=== PATIENT | female | born 1945 | race Caucasian/White ===

== ENCOUNTER → 2016-09-29 | Outpatient (CLI) | payer OTHER ==
[~2016-09-29] MED LIST: AGM875 PO; ASPI81TA28 PO; CHOL1000 PO; LISI-461 PO; TNRUNK; VLT/50 PO
--- NOTE | 2016-09-29 10:19 | DIAGNOSTIC IMAGING REPORT ---
DOUBLE CONTRAST UPPER GI SERIES CLINICAL HISTORY: Status post placement of adjustable gastric banding now with reflux symptoms. COMPARISON STUDY: Upper GI series September 2015. FLUOROSCOPY TIME: 2.9 minutes. FINDINGS: Note is made of mild esophageal dysmotility. A gastric lap band is in place. There is moderate narrowing at the level the lap band. This is similar to exam of September 26, 2015. There is moderate dilatation of the gastric cardia which is unchanged. There may be a small hiatal hernia. No contrast extravasation is identified. There is no convincing evidence for slippage. IMPRESSION: 1. Status post placement of a gastric lap band. No contrast extravasation. No convincing evidence for slippage. 2. No significant change in moderate narrowing at the level of the lap band with dilatation of the gastric cardia and a possible hiatal hernia. 3. Mild esophageal dysmotility. Electronically signed by: Akhil Mcnulty M.D. 09/29/2016 10:17 AM Dictated Date/Time: 09/29/2016 10:07 AM
== END | disposition home or self-care (01) ==
LOC: C.RAD 09:09
PROVIDERS: ATTEND Surgery
DX: K91.1 Postgastric surgery syndromes (principal); K22.4 Dyskinesia of esophagus

== ENCOUNTER → 2017-03-10 | Outpatient (CLI) | payer OTHER ==
--- NOTE | 2017-03-10 13:38 | MAMMOGRAPHY REPORT ---
BILATERAL DIGITAL SCREENING MAMMOGRAM WITH CAD: 03/10/2017 CLINICAL HISTORY: Routine screening. Patient has no complaints. TECHNIQUE: Current study was also evaluated with a Computer Aided Detection (CAD) system. Bilateral CC and MLO views were obtained. COMPARISON: Comparison is made to exams dated: 03/09/2016 mammogram, 03/04/2015 mammogram, 09/17/2014 mammogram, 03/08/2014 mammogram, 03/01/2014 mammogram, and 02/28/2013 mammogram - [facility]. BREAST COMPOSITION: The tissue of both breasts is almost entirely fatty. FINDINGS: No suspicious masses, calcifications, or areas of architectural distortion are noted in ei ther breast. There has been no significant interval change compared to prior exams. IMPRESSION: ACR BI-RADS CATEGORY 1: NEGATIVE There is no mammographic evidence of malignancy. A 1 year screening mammogram is recommended. The pa tient will receive written notification of the results. Approximately 10% of breast cancers are not detected with mammography. A negative mammographic report should not delay biopsy if a clinically suggestive mass is present. Patricia Baron M.D. ah/:03/10/2017 12:01:38 Home [facility] Rn: Marie Yeung RT(R)(M)(BD), [facility] letter sent: Normal 1/2 BI-RADS Code: ACR BI-RADS Category 1: Negative
== END | disposition home or self-care (01) ==
LOC: C.MAMM 10:22
PROVIDERS: ATTEND Family Medicine
DX: Z12.31 Encounter for screening mammogram for malignant neoplasm of breast (principal)

== ENCOUNTER 2017-04-09 08:05 | Emergency (ER) | payer OTHER ==
[~2017-04-09] VITALS: Ht 160 cm; Wt 105.0 kg
[~2017-04-09 08:05] MED LIST changes: -ASPI81TA28 PO; -CHOL1000 PO; -LISI-461 PO; -VLT/50 PO
[2017-04-09 08:20] VITALS: TEMP 36.9; O2SAT 98; Ht 160 cm; Wt 105.0 kg
[2017-04-09] MEDS ORDERED: NITROGLYCERIN 0.4 MG SL PER TAB CHARGE SL PRN (08:30)
[2017-04-09 08:35] LABS: BASO % 0.4 %; BASO ABS # 0.02 K/uL (0-0.2); COMPLETE YES; EOS % 3.5 %; HEMATOCRIT 38.7 % (37-47); IG% 0.4 %; LYMPH % 29.9 %; LYMPH ABS # 1.54 K/uL (1.2-3.4); MEAN CELL VOLUME 92.8 fL (80-100); MEAN CORPUSCULAR HEMOGLOBIN 30.5 pg (25-34); MEAN CORPUSCULAR HGB CONC 32.8 g/dl (32-36); MEAN PLATELET VOLUME 9.4 fL (7.4-10.4); MONO % 6.8 %; PLATELET COUNT 272 K/uL (130-400); RED BLOOD COUNT 4.17 M/uL (4.2-5.4); WHITE BLOOD COUNT 5.15 K/uL (4.8-10.8)
--- NOTE | 2017-04-09 08:42 | DIAGNOSTIC IMAGING REPORT ---
CHEST ONE VIEW PORTABLE CLINICAL HISTORY: Chest pain. COMPARISON STUDY: No previous studies for comparison. FINDINGS: Evaluation is suboptimal due to body habitus and portable technique. No pneumothorax or pleural effusion is present. There is no evidence of pulmonary edema. Cardiac size is at the upper limits of normal. There may be a calcified 1.1 cm right upper lobe nodule. Apparent hazy bibasilar opacities are likely artifactual. IMPRESSION: No acute cardiopulmonary findings. Electronically signed by: Akhil Mcnulty M.D. 04/09/2017 8:41 AM Dictated Date/Time: 04/09/2017 8:40 AM
--- NOTE | 2017-04-09 08:48 | EMERGENCY ROOM VISIT NOTE ---
History Report prepared by Sushant: Arlen Belcher Under the Supervision of: Dr. Ebony Deras M.D. First contact with patient: 08:18 Chief Complaint: CARDIAC ASSESSMENT Stated Complaint: LIGHTHEADED/DIZZY/CHEST TIGHTNESS/ARM NUMBNESS History of Present Illness The patient is a 71 year old female who presents to the Emergency Room for a cardiac assessment of symptoms that started 1.5 hours ago, when she woke up around 0645. The patient came to the ED via ambulance from home. She was given 4 baby aspirin en route to the ED. The patient states that she woke up and her fingers were numb which is not abnormal for her. However, usually the numbness resolves when she sits up and gets out of bed. Today, the numbness persisted and she also experienced lightheadedness/dizziness. She states that her head felt like it was spinning but it also felt like her head wanted to drift off to the left side. The patient got out of bed and made the bed but the dizziness persisted so she sat back down on the bed. The patient took a couple of deep breaths while she was sitting on the bed and her fingers continued to be numb. She got up from the bed to get dressed and brush her teeth but after doing those things she developed chest tightness that radiated into her neck. She sat back down on her bed and asked Hue what the symptoms of a HI in women were and her symptoms matched so she felt that she needed to call the ambulance. She denies difficulty speaking, nausea, vomiting, and one-sided weakness. The patient also denies any difficulty ambulating but adds that she ambulated slowly. She states that the numbness in her fingers is nearly resolved now but she is still experiencing the chest tightness.The patient states that she has never had a HI. The patient is a former smoker and states that she quit 33 years ago. The patient states that she has not experienced any problems with her blood sugar. Source of History: patient Onset: 1.5 hours ago, when she woke up around 0645 Position: chest Quality: other (cardiac assessment) Timing: constant Associated Symptoms: + neck pain, + chest pain (tightness), + numbness ( bilateral fingers), No nausea, No vomiting, No weakness (one-sided) Note: lightheadedness/dizziness, no difficulty speaking, no difficulty ambulating Review of Systems See HPI for pertinent positives & negatives. A total of 10 systems reviewed and were otherwise negative. Past Medical & Surgical Medical Problems: (1) Arthritis (2) Hypertension Surgical Problems: (1) Hx of laparoscopic gastric banding Family History Cancer Social History Marital Status: Housing Status: lives alone Occupation Status: retired Current/Historical Medications Scheduled Aspirin (Aspirin Ec), 81 MG PO DAILY Cholecalciferol (Vitamin D3), 1 TAB PO DAILY Diclofenac Sod (Voltaren), Unknown Dose PO BID Lisinopril (Zestril), 0.5 TAB PO DAILY Allergies Coded Allergies: No Known Allergies (Unverified Allergy, NKA, 05/27/09) Physical Exam Vital Signs Date Time Temp Pulse Resp B/P (MAP) Pulse Ox O2 Delivery O2 Flow Rate FiO2 04/09/17 11:05 67 13 147/89 97 04/09/17 09:30 66 16 140/82 97 Room Air 04/09/17 09:00 65 13 155/93 97 Room Air 04/09/17 08:30 64 13 176/99 98 Room Air 04/09/17 08:20 98 Room Air 04/09/17 08:20 36.9 65 12 196/83 98 Room Air 04/09/17 08:20 98 Room Air 04/09/17 08:16 66 Physical Exam Vital signs reviewed. General: Well-appearing female, in no significant distress. HEENT: No scleral icterus, PERRLA, neck supple. Atraumatic. Cardiovascular: Regular rate and rhythm, no extra sounds. Pulmonary: Clear to auscultation bilaterally, normal work of breathing. Abdomen: Soft, obese, nontender, nondistended, positive bowel sounds. Musculoskeletal: Atraumatic, no peripheral edema. Neurologic: Patient awake alert and oriented x 3, full strength in all 4 extremities. Cranial nerves 2 through 12 grossly intact. Skin: Warm, dry, no rash Medical Decision & Procedures ER Provider Diagnostic Interpretation: Radiology results as stated below per my review and radiologist interpretation: CHEST ONE VIEW PORTABLE FINDINGS: Evaluation is suboptimal due to body habitus and portable technique. No pneumothorax or pleural effusion is present. There is no evidence of pulmonary edema. Cardiac size is at the upper limits of normal. There may be a calcified 1.1 cm right upper lobe nodule. Apparent hazy bibasilar opacities are likely artifactual. IMPRESSION: No acute cardiopulmonary findings. Electronically signed by: Akhil Mcnulty M.D. 04/09/2017 8:41 AM Dictated Date/Time: 04/09/2017 8:[address] OF THE HEAD WITHOUT CONTRAST FINDINGS: No acute intracranial hemorrhage, midline shift or mass effect is present. Ventricular system is normal. Basilar cisterns are patent. There are no extra-axial collections. Blackman-white differentiation is maintained. There are no findings to suggest acute dural sinus thrombosis or acute territorial infarct. The right maxillary sinus contains hyperdense material and is diminutive. The anterior right ethmoid sinuses as well as the right frontal sinus are opacified. IMPRESSION: 1. No acute intracranial findings. 2. Right frontal, ethmoid and maxillary sinus opacification which may be chronic. Electronically signed by: Akhil Mcnulty M.D. 04/09/2017 9:06 AM Dictated Date/Time: 04/09/2017 9:02 AM Laboratory Results 04/09/17 08:20 Red Blood Count 4.17, Mean Corpuscular Volume 92.8, Mean Corpuscular Hemoglobin 30.5, Mean Corpuscular Hemoglobin Concent 32.8, Mean Platelet Volume 9.4, Neutrophils (%) (Auto) 59.0, Lymphocytes (%) (Auto) 29.9, Monocytes (%) (Auto) 6.8, Eosinophils (%) (Auto) 3.5, Basophils (%) (Auto) 0.4, Neutrophils # (Auto) 3.04, Lymphocytes # (Auto) 1.54, Monocytes # (Auto) 0.35, Eosinophils # (Auto) 0.18, Basophils # (Auto) 0.02 04/09/17 08:20 Test 04/09/17 08:20 04/09/17 09:53 White Blood Count 5.15 K/uL (4.8-10.8) Red Blood Count 4.17 M/uL (4.2-5.4) Hemoglobin 12.7 g/dL (12.0-16.0) Hematocrit 38.7 % (37-47) Mean Corpuscular Volume 92.8 fL (80-100) Mean Corpuscular Hemoglobin 30.5 pg (25-34) Mean Corpuscular Hemoglobin Concent 32.8 g/dl (32-36) Platelet Count 272 K/uL (130-400) Mean Platelet Volume 9.4 fL (7.4-10.4) Neutrophils (%) (Auto) 59.0 % Lymphocytes (%) (Auto) 29.9 % Monocytes (%) (Auto) 6.8 % Eosinophils (%) (Auto) 3.5 % Basophils (%) (Auto) 0.4 % Neutrophils # (Auto) 3.04 K/uL (1.4-6.5) Lymphocytes # (Auto) 1.54 K/uL (1.2-3.4) Monocytes # (Auto) 0.35 K/uL (0.11-0.59) Eosinophils # (Auto) 0.18 K/uL (0-0.5) Basophils # (Auto) 0.02 K/uL (0-0.2) RDW Standard Deviation 48.0 fL (36.4-46.3) RDW Coefficient of Variation 14.1 % (11.5-14.5) Immature Granulocyte % (Auto) 0.4 % Immature Granulocyte # (Auto) 0.02 K/uL (0.00-0.02) Anion Gap 7.0 mmol/L (3-11) Est Creatinine Clear Calc Drug Dose 85.5 ml/min Estimated GFR () 100.0 Estimated GFR (Non- 86.3 BUN/Creatinine Ratio 13.2 (10-20) Calcium Level 9.2 mg/dl (8.5-10.1) Magnesium Level 2.0 mg/dl (1.8-2.4) Total Bilirubin 0.4 mg/dl (0.2-1) Direct Bilirubin < 0.1 mg/dl (0-0.2) Aspartate Amino Transf (AST/SGOT) 20 U/L (15-37) Alanine Aminotransferase (ALT/SGPT) 30 U/L (12-78) Alkaline Phosphatase 62 U/L (45-117) Total Creatine Kinase 62 U/L (26-192) Creatine Kinase MB < 0.5 ng/ml (0.5-3.6) Creatine Kinase MB Ratio (0-3.0) Total Protein 7.2 gm/dl (6.4-8.2) Albumin 3.7 gm/dl (3.4-5.0) Bedside Troponin I < 0.030 ng/ml (0-0.045) Laboratory results per my review. ECG Indication: chest pain Rate (beats per minute): 65 Rhythm: normal sinus Findings: no acute ischemic change, left axis deviation, no ectopy ED Course 0820: Past medical records reviewed. The patient was evaluated in room B2. A complete history and physical examination was performed. 0830: Ordered Nitroglycerin 0.4 mg SL 1007: Upon reevaluation, the patient appeared to have improvement of her symptoms. I discussed findings with her. She verbalized agreement of the treatment plan. She was discharged home. Medical Decision Differential diagnosis: Acute coronary syndrome, pulmonary embolus, aortic dissection, musculoskeletal pain, pneumonia, pleural effusion, pneumothorax This patient was evaluated and appeared to be in no significant distress. IV access was obtained and laboratory work was drawn. Patient was placed on the monitoring analyst and found to be in a normal sinus rhythm. EKG reveals no evidence of acute ischemic changes. Laboratory work reveals 2 negative troponins. Patient did receive aspirin in the ambulance. A nitroglycerin trial was given in the ER with some success. CT scan of the head was performed given complaints of unilateral arm numbness. This study is negative for intracranial abnormality however there is chronic sinus opacification. I did inform the patient findings and she will arrange for follow-up with ENT. She will return to the ER for worsening of symptoms or any medical concerns. Medication Reconcilliation Current Medication List: was personally reviewed by me Blood Pressure Screening Patient's blood pressure: Elevated blood pressure Blood pressure disposition: Referred to PCP Impression Primary Impression: Chest pain radiating to arm Scribe Attestation The scribe's documentation has been prepared under my direction and personally reviewed by me in its entirety. I confirm that the note above accurately reflects all work, treatment, procedures, and medical decision making performed by me. Departure Information Dispostion Home / Self-Care Referrals Catarina Snow M.D. (PCP) Forms IMPORTANT VISIT INFORMATION Patient Instructions My [facility] Additional Instructions Diagnosis: Chest pain radiating to the arm, hypertension Continue your aspirin and blood pressure medicine as prescribed. Follow-up with your physician this week for consideration of further cardiac testing. Have your blood pressure rechecked. Return to the emergency department for worsening of symptoms or any medical concerns.
[2017-04-09 08:58] LABS: ALT/SGPT 30 U/L (12-78); AST/SGOT 20 U/L (15-37); BLOOD UREA NITROGEN 9 mg/dl (7-18); BUN/CREATININE RATIO 13.2 (10-20); CALCIUM 9.2 mg/dl (8.5-10.1); CARBON DIOXIDE 28 mmol/L (21-32); CHLORIDE 107 mmol/L (98-107); CREATININE 0.71 mg/dl (0.60-1.20); GLUCOSE 117 mg/dl (70-99); POTASSIUM 3.9 mmol/L (3.5-5.1); SODIUM 142 mmol/L (136-145)
[2017-04-09 09:03] LABS: ALKALINE PHOSPHATASE 62 U/L (45-117)
--- NOTE | 2017-04-09 09:07 | DIAGNOSTIC IMAGING REPORT ---
CT OF THE HEAD WITHOUT CONTRAST CLINICAL HISTORY: Dizzy, left arm numbness COMPARISON STUDY: Head CT May 27, 2009. CT DOSE: 537.48 mGy.cm TECHNIQUE: Helical axial images of the head were obtained without IV contrast. Automated exposure control was utilized for the study. A dose lowering technique was utilized adhering to the principles of ALARA. FINDINGS: No acute intracranial hemorrhage, midline shift or mass effect is present. Ventricular system is normal. Basilar cisterns are patent. There are no extra-axial collections. Blackman-white differentiation is maintained. There are no findings to suggest acute dural sinus thrombosis or acute territorial infarct. The right maxillary sinus contains hyperdense material and is diminutive. The anterior right ethmoid sinuses as well as the right frontal sinus are opacified. IMPRESSION: 1. No acute intracranial findings. 2. Right frontal, ethmoid and maxillary sinus opacification which may be chronic. Electronically signed by: Akhil Mcnulty M.D. 04/09/2017 9:06 AM Dictated Date/Time: 04/09/2017 9:02 AM
[2017-04-09] MEDS ORDERED: CHOL1000 PO (09:15)
[2017-04-09] MEDS ORDERED: ASPI81TA28 PO (09:15)
[2017-04-09] MEDS ORDERED: LISI-461 PO (09:15)
[2017-04-09] MEDS ORDERED: VLT/50 PO (09:15)
[2017-04-09 11:05] VITALS: BP 147/89; PULSE 67; O2SAT 97
== END 2017-04-09 11:00 | disposition home or self-care (01) ==
LOC: EDBD 08:05 → C.EDB 08:07
DX: R07.9 Chest pain, unspecified (principal); R20.0 Anesthesia of skin; R42 Dizziness and giddiness; I10 Essential (primary) hypertension; M19.90 Unspecified osteoarthritis, unspecified site; Z87.891 Personal history of nicotine dependence; Z98.84 Bariatric surgery status; Z79.82 Long term (current) use of aspirin; Z79.899 Other long term (current) drug therapy

== ENCOUNTER → 2017-12-23 | Outpatient (CLI) | payer OTHER ==
[~2017-12-23] MED LIST changes: -AGM875 PO; +ASPI81TA28 PO; +CHOL1000 PO; +LISI-461 PO; -TNRUNK; +VLT/50 PO
--- NOTE | 2017-12-23 09:28 | DIAGNOSTIC IMAGING REPORT ---
DOUBLE CONTRAST UPPER GI SERIES CLINICAL HISTORY: Gastric band adjustment. COMPARISON STUDY: Fluoroscopic upper GI series dated 09/29/2016. TECHNIQUE: A a modified air contrast upper GI series was performed. Spot images of the esophagus and stomach were obtained in multiple obliquities both upright and prone. FINDINGS: The patient swallowed barium without difficulty. The esophagus is structurally normal without evidence of intrinsic or extrinsic mass. Mild dysmotility is observed. The esophageal mucosal pattern is normal. No gastroesophageal reflux was elicited by having the patient perform the Valsalva maneuver. The gastroesophageal junction distends normally. A small hiatal hernia is noted. A gastric lap band is in place. Moderate narrowing is seen at the level of the lap band, and this is unchanged in both appearance and position from the 09/29/2016 examination. There is no evidence of slippage. No mass or ulceration is identified. There was no evidence of gastritis. The duodenal bulb and sweep are unremarkable. No extraluminal contrast is identified. Fluoroscopy time: 1.8 minutes Fluoroscopic images: 23 IMPRESSION: 1. Unchanged position of a gastric lap band as compared to 09/29/2016. There is no evidence of slippage. 2. Mild esophageal dysmotility. 3. Small hiatal hernia. Electronically signed by: Mariano Arroyo M.D. 12/23/2017 9:27 AM Dictated Date/Time: 12/23/2017 9:24 AM
== END | disposition home or self-care (01) ==
LOC: C.RAD 08:28
PROVIDERS: ATTEND Surgery
DX: Z98.84 Bariatric surgery status (principal)

== ENCOUNTER → 2018-01-12 | Outpatient (CLI) | payer OTHER | END | disposition home or self-care (01) | LOC: C.PATHSPEC 17:21 | PROVIDERS: ATTEND Plastic Surgery | DX: D03.59 Melanoma in situ of other part of trunk (principal) ==

== ENCOUNTER 2020-04-19 00:42 | Observation (INO) ==
[2020-04-19] MEDS ORDERED: ONDANSETRON INJ 2 MG/ML 2 ML VIAL IV STA (01:01)
[2020-04-19] MEDS ORDERED: fentaNYL citrate 100 MCG/2 ML VIAL IV STA (01:01)
[2020-04-19] MEDS ORDERED: SODIUM CHLORIDE 0.9% 1000ML 1,000 ML IV ONE ×2 (01:01→01:42)
--- NOTE | 2020-04-19 01:07 | Emergency Department Note ---
Impression & Plan Acute appendicitis, Acidosis, lactic ED Provider Note Name: BENITEZ GUDINO Age: 74 Sex: F Arrives Via: Ambulance Informant: Patient ED Provider: Kobe Knox MD Chief Complaint: Abdominal Pain Impression: Acute Appendicitis Lactic Acidosis Medical Decision Making: Pleasant 74 yr old female with history HTN, Psoriasis, Arthritis and previous lap band surgery arrives with acute RLQ pain, anorexia and fevers. Labs with mild WBC elevation and mild Lactic Acidosis. No hypotension and HR improved with IV fluids. Given 30ml/kg fluids IBW plus some. With lactic acidosis and Fever felt that empiric ABx indicated with suspicion Appy I gave Mefoxin. She is not septic appearing and is not septic shock currently. She feels well post fluids and pain medications. Did not given Tylenol as she had had this prior to arrival. She was discussed with gen surg after CT showed non perforated appendicitis and was taken to OR for further management. Stable throughout ED stay and looks well at transfer to OR. Prior Medical Record and Triage/Nursing Notes reviewed by Me Additional history obtained from chart Differentials:Appendicitis, diverticulitis, UTI, obstruction, mesenteric ischemia, aortic pathology, inflammatory bowel disease, renal colic, PUD, pancreatitis, biliary pathology, hernia, volvulus, constipation, as well as other pathologies. Vital Signs: reviewed and remarkable for no significant abnormalities Interventions: Saline lock, NSS Bolus 2.5L IV, mefoxin 2gm IV Labs:Reviewed and remarkable for mild wbc/lactic acid elevation Imaging:[facility] Radiologist interpretation reviewed by me: CT abd pelv iv contrast with acute non perforated appendicitis Consults:Dr Acosta Gen Surg took patient to OR Plan: Disposition:Hospitalization. Condition: Good Blood pressure:Normal.No Referral necessary Prescriptions:none PDMP: n/a History of Present Illness:74 / Female with history of HTN, Psoriasis, Arthritis arrives with abdominal pain. 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 Pain RLQ sharp. As evening when on increasing pain, now radiating to umbilicus and LLQ. Denies radiation to back. Associated with nausea, malaise, fatigue, and fevers. Temp 102 at home. Used Tylenol CARE MANAGER CNA with improvement in fever but no improvement in pain. No trauma nor injuries. Movement makes worse, rest makes better. History of Lap band surgery and D&C, no recent surgeries. Denies previous appendicitis, diverticulitis nor cholecystitis. ROS: See above HPI for pertinent positives & negatives. A total of 10 systems reviewed and were otherwise negative. Past Medical History:HTN, Psoriasis, Arthritis Past Surgical History:lab band, D&C Family History:Mother HTN Social History:Previous smoker, lives alone, no etoh, retired Home Medications:See Below Allergies:NKDA Vitals:Blood Pressure: 200/99, Pulse 107, RR 22, T 37.7C, O2 95% on RA Physical Exam: GENERAL: Patient is uncomfortable appearing and in moderate distress. EYES: No scleral icterus, unremarkable pupils. ENT: Mucous membranes moist, no nasal congestion. NECK: No masses appreciated, nomeningismus, trachea is midline. RESPIRATORY: No dyspnea. Clear to auscultation and equal bilaterally. No wheeze, no rhonchi. CARDIOVASCULAR: Regular rate and rhythm.No murmurs, rubs, gallops appreciated. GASTROINTESTINAL: Moderate RLQ TTP, mild umbilical TTP, no peritonitis.Bowel sounds positive.No masses appreciated. BACK: No midline tenderness, no CVA tenderness EXTREMITIES: Normal motion all extremities, no cyanosis, trace edema bilateral lower legs NEUROLOGIC: Alert and oriented, no acute motor or sensory deficits, no focal weakness, cranial nerves grossly intact. SKIN: No rash, no jaundice, no diaphoresis. PSYCH: Appropriate GCS: 15 ED Course: Times/Reassessments: feeling better with fluids/pain meds, agreeable to gen surg eval, vitals stable on repeat evaluations pending transfer to OR Kobe Knox MD Past Med/Surg History Medical History History of basal cell carcinoma (Inactive) Personal history of malignant melanoma of skin (Inactive) Surgical History Hx of laparoscopic gastric banding (Inactive) S/P cataract extraction bilateral Family History Father No problems noted. Mother Hypertension Neurologic disorder Social History (Updated 12/14/19 @ 10:12 by Rose Neff PA-C) Smoking Status: Former smoker Feels Safe at Home: Yes Allergies Allergies Allergy/AdvReac Type Severity Reaction Status Date / Time No Known Allergies Allergy NKA Verified 04/19/20 01:22 Home Meds Home Medications Medication Instructions Recorded Confirmed acetaminophen 650 mg 650 mg PO TID PRN tab 07/23/19 04/19/20 tablet,extended release ascorbate calcium (vitamin C) 500 500 mg PO DAILY 07/23/19 04/19/20 mg tablet cannabidiol (CBD) extract 0 drp PO DIRECTED PRN 07/23/19 04/19/20 coenzyme Q10 100 mg capsule 100 mg PO DAILY 07/23/19 04/19/20 lisinopril 20 1 tab PO DAILY 07/23/19 04/19/20 mg-hydrochlorothiazide 25 mg tablet loratadine 10 mg tablet 10 mg PO DAILY 07/23/19 04/19/20 vitamin E (dl, acetate) 400 unit 400 units PO DAILY 07/23/19 04/19/20 capsule famotidine 20 mg tablet 20 mg PO BID 04/08/20 04/19/20 cholecalciferol (vitamin D3) 0 mcg PO DAILY 04/19/20 04/19/20 [Vitamin D3] Previous Rx's Medication Instructions Recorded clobetasol 0.05 % shampoo 1 appln TOP DAILY #118 ml 10/10/19 Results & Data (ED) Vital Signs Vital Signs - 24 hr 04/19/20 00:49 04/19/20 01:19 04/19/20 01:30 Temperature 37.7 C H Temperature Source Oral Pulse Rate 107 H Pulse Rate [Apical] 97 H 91 H Respiratory Rate 22 20 21 Blood Pressure 200/99 H Blood Pressure [Left Arm] 136/81 147/81 H Blood Pressure Mean 132 Blood Pressure Mean [Left Arm] 99 103 Pulse Oximetry 95 91 99 Oxygen Delivery Method Room Air Room Air Nasal Cannula Oxygen Flow Rate 2 Sepsis Recent Fever Within 48 Hours Yes Sepsis New/Unexplained Change in Mental Status No Sepsis Action Taken by Nursing Physician Notified 04/19/20 03:05 Temperature Temperature Source Pulse Rate 90 Pulse Rate [Apical] Respiratory Rate 18 Blood Pressure 143/88 H Blood Pressure [Left Arm] Blood Pressure Mean Blood Pressure Mean [Left Arm] Pulse Oximetry 94 Oxygen Delivery Method Room Air Oxygen Flow Rate Sepsis Recent Fever Within 48 Hours Sepsis New/Unexplained Change in Mental Status Sepsis Action Taken by Nursing Laboratory Data Result diagrams: 04/19/20 00:50 04/19/20 00:50 Lab Results 0804/19/20 04/19/20 Range/Units 00:50 00:50 00:50 WBC 13.17 H (4.8-10.8) K/uL RBC 3.86 L (4.2-5.4) M/uL Hgb 12.2 (12.0-16.0) g/dL Hct 36.9 L (37-47) % MCV 95.6 (80-100) fL MCH 31.6 (25-34) pg MCHC 33.1 (32-36) g/dL RDW Std Deviation 46.9 H (36.4-46.3) fL RDW Coeff of Nick 13.5 (11.5-14.5) % Plt Count 301 (130-400) K/uL MPV 9.2 (7.4-10.4) fL Immature Gran % (Auto) 0.2 % Neut % (Auto) 86.5 % Lymph % (Auto) 7.1 % [place] % (Auto) 5.8 % Eos % (Auto) 0.2 % Baso % (Auto) 0.2 % Neut # (Auto) 11.39 H (1.4-6.5) K/uL Lymph # (Auto) 0.93 L (1.2-3.4) K/uL [place] # (Auto) 0.77 H (0.11-0.59) K/uL Eos # (Auto) 0.03 (0-0.5) K/uL Baso # (Auto) 0.02 (0-0.2) K/uL Immature Gran # (Auto) 0.03 H (0.00-0.02) K/uL Sodium 140 (136-145) mmol/L Potassium 3.7 (3.5-5.1) mmol/L Chloride 107 (98-107) mmol/L Carbon Dioxide 24 (21-32) mmol/L Anion Gap 9.0 (3-11) BUN 10 (7-18) mg/dl Creatinine 0.76 (0.6-1.2) mg/dl Est Cr Clr Drug Dosing 79.6 ml/min Est GFR ( Amer) 90.2 Est GFR (Non-Af Amer) 77.8 BUN/Creatinine Ratio 13.8 (10-20) Glucose 171 H (70-99) mg/dl Lactate 2.5 H* (0.4-2.0) mmol/L Calcium 9.3 (8.5-10.1) mg/dl Total Bilirubin 0.5 (0.2-1) mg/dl Direct Bilirubin 0.1 (0-0.2) mg/dl AST 14 L (15-37) U/L ALT 24 (12-78) U/L Alkaline Phosphatase 56 (45-117) U/L Total Protein 7.8 (6.4-8.2) gm/dl Albumin 3.6 (3.4-5.0) gm/dl Lipase 59 L (73-393) U/L 04/19/20 Range/Units 03:20 WBC (4.8-10.8) K/uL RBC (4.2-5.4) M/uL Hgb (12.0-16.0) g/dL Hct (37-47) % MCV (80-100) fL MCH (25-34) pg MCHC (32-36) g/dL RDW Std Deviation (36.4-46.3) fL RDW Coeff of Nick (11.5-14.5) % Plt Count (130-400) K/uL MPV (7.4-10.4) fL Immature Gran % (Auto) % Neut % (Auto) % Lymph % (Auto) % [place] % (Auto) % Eos % (Auto) % Baso % (Auto) % Neut # (Auto) (1.4-6.5) K/uL Lymph # (Auto) (1.2-3.4) K/uL [place] # (Auto) (0.11-0.59) K/uL Eos # (Auto) (0-0.5) K/uL Baso # (Auto) (0-0.2) K/uL Immature Gran # (Auto) (0.00-0.02) K/uL Sodium (136-145) mmol/L Potassium (3.5-5.1) mmol/L Chloride (98-107) mmol/L Carbon Dioxide (21-32) mmol/L Anion Gap (3-11) BUN (7-18) mg/dl Creatinine (0.6-1.2) mg/dl Est Cr Clr Drug Dosing ml/min Est GFR ( Amer) Est GFR (Non-Af Amer) BUN/Creatinine Ratio (10-20) Glucose (70-99) mg/dl Lactate 3.9 H* (0.4-2.0) mmol/L Calcium (8.5-10.1) mg/dl Total Bilirubin (0.2-1) mg/dl Direct Bilirubin (0-0.2) mg/dl AST (15-37) U/L ALT (12-78) U/L Alkaline Phosphatase (45-117) U/L Total Protein (6.4-8.2) gm/dl Albumin (3.4-5.0) gm/dl Lipase (73-393) U/L Administered Medications Discontinued Medications Bupivacaine HCl (Marcaine 0.5% Mpf) Confirm Administered Dose 30 ml .ROUTE .STK- MED ONE Stop: 04/19/20 03:12 Last Admin: 04/19/20 04:59 Dose: 14 ml Documented by: [id number] Cefazolin Sodium (Ancef) Confirm Administered Dose 1,000 mg .ROUTE .STK-MED ONE Stop: 04/19/20 03:12 Last Admin: 04/19/20 04:58 Dose: 1,000 mg Documented by: [id number] Fentanyl Citrate (Fentanyl Citrate) 50 mcg IV NOW STA Stop: 04/19/20 01:02 Last Admin: 04/19/20 01:13 Dose: 50 mcg Documented by: [id number] Heparin Sodium (Porcine) (Heparin Iv Bolus (Chief Design Drafter Use Only)) Confirm Administered Dose 10,000 units .ROUTE .STK-MED ONE Stop: 04/19/20 03:12 Last Admin: 04/19/20 04:59 Dose: 5,000 units Documented by: [id number] Sodium Chloride (Nss 1000ml) 1,000 mls @ 999 mls/hr IV .Q1H1M ONE Stop: 04/19/20 02:01 Last Infusion: 04/19/20 03:16 Dose: 0 mls/hr Documented by: [id number] Admin: 04/19/20 01:13 Dose: 999 mls/hr Documented by: [id number] Sodium Chloride (Nss 1000ml) 1,000 mls @ 999 mls/hr IV .Q1H1M ONE Stop: 04/19/20 02:42 Last Infusion: 04/19/20 03:17 Dose: 0 mls/hr Documented by: [id number] Admin: 04/19/20 01:49 Dose: 999 mls/hr Documented by: [id number] Cefoxitin Sodium (Mefoxin) 2,000 mg in 60 mls @ 100 mls/hr IV NOW STA Stop: 04/19/20 02:56 Last Infusion: 04/19/20 03:24 Dose: 0 mls/hr Documented by: [id number] Admin: 04/19/20 02:33 Dose: 100 mls/hr Documented by: [id number] Sodium Chloride (Nss 1000ml) 500 mls @ 999 mls/hr IV .Q31M ONE Stop: 04/19/20 02:51 Last Infusion: 04/19/20 03:24 Dose: 0 mls/hr Documented by: [id number] Admin: 04/19/20 02:33 Dose: 999 mls/hr Documented by: [id number] Ioversol (Optiray 320 100ml) 94 ml IV ONCE ONE Stop: 04/19/20 02:15 Last Admin: 04/19/20 02:15 Dose: 94 ml Documented by: [id number] Ondansetron HCl (Zofran) 4 mg IV NOW STA Stop: 04/19/20 01:02 Last Admin: 04/19/20 01:13 Dose: 4 mg Documented by: [id number] Discharge Plan Visit Data *Final* Discharge Date/Time: 04/19/20 03:05 Chief Complaint: Abdominal Pain Stated Complaint: Abd pain ED Provider: Kobe Knox Discharge Problem: Acute appendicitis, Acidosis, lactic Patient Disposition: Still a Patient Discharge Instructions Interventions: ED Discharge Assessment Last Done: 04/19/20 03:05 Discharge Problem: Acute appendicitis Qualifiers: Acute appendicitis type: with localized peritonitis Appendicitis gangrene presence: without gangrene Appendicitis perforation presence: without perforation Appendicitis abscess presence: without abscess Qualified Code(s): K35.30 - Acute appendicitis with localized peritonitis, without perforation or gangrene
[2020-04-19 01:09] LABS: Basophils # (auto) 0.02 K/uL (0-0.2); Basophils % (auto) 0.2 %; Eosinophils # (auto) 0.03 K/uL (0-0.5); Eosinophils % (auto) 0.2 %; Hematocrit (blood only) 36.9 % (37-47); Hemoglobin 12.2 g/dL (12.0-16.0); Immature Granulocytes # (auto) 0.03 K/uL (0.00-0.02); Immature Granulocytes % (auto) 0.2 %; Lymphocytes # (auto) 0.93 K/uL (1.2-3.4); Lymphocytes % (auto) 7.1 %; Mean Corpuscular Hemoglobin 31.6 pg (25-34); Mean Corpuscular Hgb Conc 33.1 g/dL (32-36); Mean Corpuscular Volume 95.6 fL (80-100); Mean Platelet Volume 9.2 fL (7.4-10.4); Monocytes # (auto) 0.77 K/uL (0.11-0.59); Monocytes % (auto) 5.8 %; Neutrophils # (auto) 11.39 K/uL (1.4-6.5); Neutrophils % (auto) 86.5 %; Platelet Count 301 K/uL (130-400); RDW Coefficient of Variation 13.5 % (11.5-14.5); RDW Standard Deviation 46.9 fL (36.4-46.3); Red Blood Count 3.86 M/uL (4.2-5.4); White Blood Count 13.17 K/uL (4.8-10.8)
[2020-04-19 01:28] LABS: Albumin Level 3.6 gm/dl (3.4-5.0); BUN Creatinine Ratio 13.8 (10-20); Bilirubin Direct 0.1 mg/dl (0-0.2); Calcium 9.3 mg/dl (8.5-10.1); Creatinine Clr Calc Pharmacy 79.6 ml/min; Est GFR (African American) 90.2; Est GFR (Non-African American) 77.8; Potassium 3.7 mmol/L (3.5-5.1)
[2020-04-19 01:31] LABS: Bilirubin,Total 0.5 mg/dl (0.2-1); Total Protein 7.8 gm/dl (6.4-8.2)
[2020-04-19] MEDS ORDERED: IOVERSOL 100ml IV ONE (02:14)
[2020-04-19] MEDS ORDERED: SODIUM CHLORIDE 0.9% 1000ML 500 ML IV ONE (02:21)
[2020-04-19] MEDS ORDERED: cefOXitin 2,000 MG/60 ML BAG IV STA (02:21)
--- NOTE | 2020-04-19 03:02 | History & Physical Report ---
Date of Service April 19, 2020 Assessment & Plan (1) Appendicitis: This patient's history, physical findings, laboratories and CT findings are consistent with appendicitis. I have recommended a laparoscopic appendectomy. I explained the possible need to convert to an open procedure. I explained the possible complications associated with those procedures. The patient wishes to go ahead with surgery and has signed a consent form. History of Present Illness Chief Complaint: Right lower quadrant abdominal pain Primary Care Provider: Kirk Bo DO This is a 74-year-old female who presented to the emergency room with a complaint of right lower quadrant pain that began about 12 to 16 hours ago. It began in the right lower quadrant and has remained there. It is sharp especially when she moves. It has not been associated with nausea or vomiting. Her temperature elevated to almost 102 at home. She has not had dysuria or nadya turia. She has no melena or hematochezia. She had a normal bowel movement yesterday morning. There is no diarrhea. Allergies Allergy/AdvReac Type Severity Reaction Status Date / Time No Known Allergies Allergy NKA Verified 04/19/20 01:22 Home Medications Home Medications Medication Instructions Recorded Confirmed Type acetaminophen 650 mg 650 mg PO TID PRN tab 07/23/19 04/19/20 History tablet,extended release ascorbate calcium (vitamin C) 500 500 mg PO DAILY 07/23/19 04/19/20 History mg tablet cannabidiol (CBD) extract 0 drp PO DIRECTED PRN 07/23/19 04/19/20 History coenzyme Q10 100 mg capsule 100 mg PO DAILY 07/23/19 04/19/20 History lisinopril 20 1 tab PO DAILY 07/23/19 04/19/20 History mg-hydrochlorothiazide 25 mg tablet loratadine 10 mg tablet 10 mg PO DAILY 07/23/19 04/19/20 History vitamin E (dl, acetate) 400 unit 400 units PO DAILY 07/23/19 04/19/20 History capsule clobetasol 0.05 % shampoo 1 appln TOP DAILY #118 ml 10/10/19 04/19/20 Rx famotidine 20 mg tablet 20 mg PO BID 04/08/20 04/19/20 History cholecalciferol (vitamin D3) 0 mcg PO DAILY 04/19/20 04/19/20 History [Vitamin D3] Past Med/Surg History Medical History (Updated 04/19/20 @ 03:04 by Osvaldo Acosta MD) History of basal cell carcinoma (Inactive) Personal history of malignant melanoma of skin (Inactive) Surgical History (Updated 04/19/20 @ 03:00 by Osvaldo Acosta MD) Hx of laparoscopic gastric banding (Inactive) S/P cataract extraction bilateral Family History (Updated 12/14/19 @ 10:12 by Rose Neff PA-C) Father No problems noted. Mother Hypertension Neurologic disorder Social History (Updated 12/14/19 @ 10:12 by Rose Neff PA-C) Smoking Status: Former smoker Feels Safe at Home: Yes Review of Systems Review of Systems: All systems reviewed & are unremarkable except as noted in HPI & below Physical Exam Constitutional: no acute distress Neck: trachea midline, no thyromegaly Respiratory: normal respiratory effort, lungs clear to auscultation Cardiovascular: Rate/Rhythm: regular rate and regular rhythm Gastrointestinal (Abdomen): Inspection/Auscultation: abdomen not distended Percussion/Palpation: + abdomen tender (Right lower quadrant ) and abdomen soft; no abdominal mass Skin: no rashes, warm and dry Lymphatic: no cervical lymphadenopathy Results & Data Results & Data ([facility]) Vital Signs (Past 12 Hours) Vital Signs Temp Pulse Pulse Resp BP BP Pulse Ox 04/19/20 01:30 91 H 21 147/81 H 99 04/19/20 01:19 97 H 20 136/81 91 04/19/20 00:49 37.7 C H 107 H 22 200/99 H 95 Laboratory Results 04/19/20 04/19/20 04/19/20 Range/Units 00:50 00:50 00:50 WBC 13.17 H (4.8-10.8) K/uL RBC 3.86 L (4.2-5.4) M/uL Hgb 12.2 (12.0-16.0) g/dL Hct 36.9 L (37-47) % MCV 95.6 (80-100) fL MCH 31.6 (25-34) pg MCHC 33.1 (32-36) g/dL RDW Std Deviation 46.9 H (36.4-46.3) fL RDW Coeff of Nick 13.5 (11.5-14.5) % Plt Count 301 (130-400) K/uL MPV 9.2 (7.4-10.4) fL Immature Gran % (Auto) 0.2 % Neut % (Auto) 86.5 % Lymph % (Auto) 7.1 % [place] % (Auto) 5.8 % Eos % (Auto) 0.2 % Baso % (Auto) 0.2 % Neut # (Auto) 11.39 H (1.4-6.5) K/uL Lymph # (Auto) 0.93 L (1.2-3.4) K/uL [place] # (Auto) 0.77 H (0.11-0.59) K/uL Eos # (Auto) 0.03 (0-0.5) K/uL Baso # (Auto) 0.02 (0-0.2) K/uL Immature Gran # (Auto) 0.03 H (0.00-0.02) K/uL Sodium 140 (136-145) mmol/L Potassium 3.7 (3.5-5.1) mmol/L Chloride 107 (98-107) mmol/L Carbon Dioxide 24 (21-32) mmol/L Anion Gap 9.0 (3-11) BUN 10 (7-18) mg/dl Creatinine 0.76 (0.6-1.2) mg/dl Est Cr Clr Drug Dosing 79.6 ml/min Est GFR ( Amer) 90.2 Est GFR (Non-Af Amer) 77.8 BUN/Creatinine Ratio 13.8 (10-20) Glucose 171 H (70-99) mg/dl Lactate 2.5 H* (0.4-2.0) mmol/L Calcium 9.3 (8.5-10.1) mg/dl Total Bilirubin 0.5 (0.2-1) mg/dl Direct Bilirubin 0.1 (0-0.2) mg/dl AST 14 L (15-37) U/L ALT 24 (12-78) U/L Alkaline Phosphatase 56 (45-117) U/L Total Protein 7.8 (6.4-8.2) gm/dl Albumin 3.6 (3.4-5.0) gm/dl Lipase 59 L (73-393) U/L Diagnostic Findings CT scan of the abdomen and pelvis with contrast revealed an enlarged appendix measuring 12 mm with appendicolith and adjacent stranding suggestive of appendicitis. There is no fluid collection or free air. Diverticulosis. Areas of mild colonic wall thickening likely related to under distention. Fluid and air in the small bowel. Query ileus or enteritis. Prominence of the right greater than left renal collecting systems without evidence of ureteral stone. Cholelithiasis. Mild fatty liver. Moderate hiatal hernia. Gastric lap band. Additional incidental findings.
[2020-04-19] MEDS ORDERED: BUPIVACAINE 0.5 % 5 MG/1 ML MPF 30ML VIAL ONE (03:11)
[2020-04-19] MEDS ORDERED: CEFAZOLIN 250 MG/ML 1 GM VIAL ONE (03:11)
[2020-04-19] MEDS ORDERED: HEPARIN (PORCINE) 1000 UNIT/ML 10 ML (CATH LAB USE ONLY) ONE (03:11)
[2020-04-19] MEDS ORDERED: ROCURONIUM BROMIDE 10 MG/ML 5 ML VIAL IV ONE ×2 (03:18→04:42)
[2020-04-19] MEDS ORDERED: PROPOFOL IV EMULSION 10 MG/ML 20 ML VIAL IV ONE (03:18)
[2020-04-19] MEDS ORDERED: fentaNYL citrate 100 MCG/2 ML VIAL ONE ×3 (03:18→04:47)
[2020-04-19] MEDS ORDERED: HYDROmorphone INJ 2 MG/ML SYR/VIAL IV PRN (03:34)
[2020-04-19] MEDS ORDERED: ATROPINE SULFATE 0.1 MG/ML 10ML SYR IV PRN (03:34)
[2020-04-19] MEDS ORDERED: fentaNYL citrate 100 MCG/2 ML VIAL IV PRN (03:34)
[2020-04-19] MEDS ORDERED: ePHEDrine sulfate 50 MG/ML AMP IV PRN (03:34)
[2020-04-19] MEDS ORDERED: ONDANSETRON INJ 2 MG/ML 2 ML VIAL IV PRN ×2 (03:34→07:32)
--- NOTE | 2020-04-19 03:35 | Anesthesiology Consultation ---
Date of Service April 19, 2020 Assessment & Plan ASA [id number] Proposed Anesthesia Anesthesia Type: General Risk / Benefits Reviewed With: PT / POA / Parent / Guardian, Accepts Plan and Informed Consent Obtained History Surgery Operation Date: 04/19/20 03:30 Proposed Procedures p Laparoscopic Appendectomy - Osvaldo Acosta MD Height/Weight Height: 5 ft 3 in Weight: 112.5 kg Allergies Allergy/AdvReac Type Severity Reaction Status Date / Time No Known Allergies Allergy NKA Verified 04/19/20 01:22 Medications Home Medications Medication Instructions Recorded Confirmed Last Taken acetaminophen 650 mg 650 mg PO TID PRN tab 07/23/19 04/19/20 Unknown tablet,extended release ascorbate calcium (vitamin C) 500 500 mg PO DAILY 07/23/19 04/19/20 04/18/20 mg tablet cannabidiol (CBD) extract 0 drp PO DIRECTED PRN 07/23/19 04/19/20 Unknown coenzyme Q10 100 mg capsule 100 mg PO DAILY 07/23/19 04/19/20 04/18/20 lisinopril 20 1 tab PO DAILY 07/23/19 04/19/20 04/18/20 mg-hydrochlorothiazide 25 mg tablet loratadine 10 mg tablet 10 mg PO DAILY 07/23/19 04/19/20 04/18/20 vitamin E (dl, acetate) 400 unit 400 units PO DAILY 07/23/19 04/19/20 04/18/20 capsule clobetasol 0.05 % shampoo 1 appln TOP DAILY #118 ml 10/10/19 04/19/20 04/18/20 famotidine 20 mg tablet 20 mg PO BID 04/08/20 04/19/20 04/18/20 cholecalciferol (vitamin D3) 0 mcg PO DAILY 04/19/20 04/19/20 04/18/20 [Vitamin D3] NPO Date Last Intake of Fluids: 04/18/20 Time Last Intake of Fluids: 12:00 Date Last Intake of Solids: 04/18/20 Time Last Intake of Solids: 12:00 Past Medical History Medical History History of basal cell carcinoma (Inactive) Personal history of malignant melanoma of skin (Inactive) Exercise / Class Metabolic Activity II 4-5 Yardwork/Stairs/Walk up hill Past Family History Family History Father No problems noted. Mother Hypertension Neurologic disorder Past Surgical History Surgical History Hx of laparoscopic gastric banding (Inactive) S/P cataract extraction bilateral Past Anesthesia History No Hx of Anesthesia Complications and No Family Hx of Anesthesia Complications History of PONV No Hx of PONV and No Hx of Motion Sickness Social History Smoking Status: Former smoker Review of Systems denies fever/cough/ colds/ chest pain/ SOB/ NIK Constitutional: no fever and no chills Respiratory: no cough and no dyspnea denies NIK Cardiovascular: no chest pain and no dyspnea on exertion Physical Exam Vital Signs Last Vital Signs Temp 37.7 C H 04/19/20 00:49 Pulse 90 04/19/20 03:05 Resp 18 04/19/20 03:05 BP 143/88 H 04/19/20 03:05 Pulse Ox 94 04/19/20 03:05 ENMT Mouth: no TMJ abnormality and no dentition abnormality Thyromental Distance: > or= 3.5 Finger Breadths Mallampati Class: II Neck neck extension not limited Respiratory normal respiratory effort; no respiratory distress Auscultation: lungs clear to auscultation bilaterally Cardiovascular Rate/Rhythm: regular rate and regular rhythm Neurologic moves all extremities Psychiatric Orientation: alert and oriented x 3 Testing Laboratory Results 04/19/20 00:50 04/19/20 00:50
[2020-04-19] MEDS ORDERED: WATER, STERILE FOR INJ 10 ML VIAL ONE (04:04)
[2020-04-19] MEDS ORDERED: DEXAMETHASONE SOD INJ 4 MG/ML VIAL ONE (04:07)
[2020-04-19] MEDS ORDERED: ALBUTEROL HFA INHALER 8.5 GM ONE (04:37)
[2020-04-19] MEDS ORDERED: SUGAMMADEX SODIUM 200 MG/2 ML VIAL IV ONE (04:53)
--- NOTE | 2020-04-19 05:16 | Post Operative Brief Note ---
Immediate Post Op Note v1 Date of Surgery April 19, 2020 Pre & Post Diagnosis Operation Date: 04/19/20 03:30 Pre-Op Diagnosis: Acute Appendicitis Post-Op Diagnosis: Acute Appendicitis I identified the patient and participated in the time-out.: Yes Procedure Operation Date: 04/19/20 03:30 Actual Procedures p Laparoscopic Appendectomy(Not Applicable) - Osvaldo Acosta MD Surgeon Osvaldo Acosta MD Limb Driver None Estimated Blood Loss 5 Findings Consistent with Post-Op Diagnosis Drains Nino Catheter
--- NOTE | 2020-04-19 06:33 | CT Scan Report ---
CT abd pelvis IV con only CT DOSE: 1309.41 mGy.cm HISTORY: Flank pain. Sepsis. RLQ pain, sepsis TECHNIQUE: Multiaxial CT images of the abdomen and pelvis were performed following the use of intrave nous contrast. A dose lowering technique was utilized adhering to the principles of ALARA. COMPARISON STUDY: None. FINDINGS: Liver spleen and pancreas are unremarkable. Evidence for prior gastric band procedure. Gall stones within the gallbladder lumen. Kidneys negative for hydronephrosis. Several small parapelvic cysts as well as a small left renal cor tical cyst. The appendix is distended to 11 mm. There is a contained appendicolith. There is moderate periappendi ceal fat stranding. No evidence for drainable abscess or collection. The colonic pattern shows scattered colonic diverticulosis. No evidence for acute diverticulitis. IMPRESSION: 1. Acute appendicitis. 2. Appendicolith with moderate periappendiceal infiltrative change. 3. No evidence for drainable abscess or collection. ACT 112: Negative or not required by law. The above report was generated using voice recognition software. It may contain grammatical, syntax or spelling errors. Electronically signed by: Osvaldo Madden M.D. 04/19/2020 6:32 AM
--- NOTE | 2020-04-19 06:38 | Anesthesiology Progress Note ---
Date of Service April 19, 2020 Anesthesia Post Procedure Vital Signs Vital Signs: Temp Pulse Pulse Resp BP BP Pulse Ox 04/19/20 06:11 37.7 C H 99 H 18 138/80 95 04/19/20 06:00 99 H 16 140/79 93 04/19/20 05:50 100 H 16 144/80 H 96 04/19/20 05:37 37.4 C 101 H 16 148/83 H 95 04/19/20 03:05 90 18 143/88 H 94 04/19/20 01:30 91 H 21 147/81 H 99 04/19/20 01:19 97 H 20 136/81 91 04/19/20 00:49 37.7 C H 107 H 22 200/99 H 95 Pain Intensity Abdomen: Pain Intensity: 9 Transfer of Care Handoff Completed per policy Notes Mental Status: alert / awake / arousable and participated in evaluation Patient Amnestic to Procedure: Yes Nausea / Vomiting: adequately controlled Pain: adequately controlled Airway Patency, RR, SpO2: stable & adequate BP & HR: stable & adequate Hydration State: stable & adequate Anesthetic Complications: no major complications apparent and Pt Satisfied with anesthetic care
[2020-04-19] MEDS ORDERED: OXYCODONE/ACETAMINOPHEN 5mg/325mg TAB PO PRN (07:32)
[2020-04-19] MEDS ORDERED: MoRPHine SULFATE 4 MG/ML 1 ML CARP\\VIAL IV PRN (07:32)
[2020-04-19] MEDS ORDERED: D5W AND 1/2NSS + 20MEQ KCL 20 MEQ/1,000 ML BAG IV SCH (08:00)
[2020-04-19 08:32] LABS: Appearance Urine Clear (Clear); Bacteria Urine Automated Negative (Negative); Bilirubin Urine Negative (Negative); Blood Urine Trace (Negative); Cast Urine Automated 0 /lpf (0-5); Color Urine Yellow; Epithelial Cell Urine Auto >30 /lpf (0-5); Glucose Urine UA 1+ (Negative); Ketones Urine 2+ (Negative); Leukocyte Esterase Urine Negative (Negative); Nitrite Urine Negative (Negative); Protein Urine Negative (Negative); RBC Urine Automated 0-4 /hpf (0-4); Specific Gravity Urine 1.028 (1.000-1.030); Urobilinogen Urine Negative (Negative)
[2020-04-19] MEDS ORDERED: FAMOTIDINE 20 MG TAB PO SCH (09:00)
[2020-04-19] MEDS ORDERED: LISINOPRIL/HCTZ 20/25MG 1 TAB PO SCH (09:00)
--- NOTE | 2020-04-19 11:33 | Operative Report (OR) ---
DATE OF OPERATION: 04/19/2020 PREOPERATIVE DIAGNOSIS: Acute appendicitis. POSTOPERATIVE DIAGNOSIS: Acute appendicitis. PROCEDURE: Laparoscopic appendectomy. SURGEON: Osvaldo Acosta MD. FINDINGS: The appendix in its entire length but for the proximal 2 cm was hyperemic, thickened and firm. It was adherent to the mesentery of the cecum and the terminal ileum. The base of the appendix was normal as was the cecum at the base of the appendix. There was no thickening of the wall of the cecum. The remainder of the visible bowel appeared normal. TECHNIQUE: The patient was given a general anesthetic and the area was prepped and draped in the usual sterile fashion. The site for the incision inferior to the umbilicus was chosen. The skin and subcutaneous tissue were anesthetized and the skin incision was made transversely. This was carried out to the fascia, which was grasped with 2 Madie clamps and incised between. The peritoneum was identified, incised, and the introducer was placed bluntly. The abdomen was then insufflated to a pressure of 15 mmHg with carbon dioxide. Site for the lower midline introducer was chosen and the skin was anesthetized. Skin incision was made and the introducer was placed. The appendix was easily identified. The left lower quadrant introducer was placed through a skin incision that had been anesthetized with 0.5% Marcaine. The introducer was placed under direct vision. Traction was placed on the gallbladder and the attachments to the mesentery of the terminal ileum were first identified and allowing further elevation. Further blunt dissection was carried out to separate the appendix and the mesoappendix away from the wall of the cecum and the mesentery of the cecum, and the appendix was followed proximally until the base of the appendix could be identified. Some of that required meticulous millimeter by millimeter dissection. Once I was able to identify the base of the appendix, I was able to separate the mesoappendix away from the base and then divided the mesoappendix using the Endo-EARL stapler. That confirmed that I was at the base of the appendix and the appendix was amputated using the Endo-EARL as well. The appendix was placed into an Endobag and brought out through the left lower quadrant introducer site. That introducer was replaced and the right lower quadrant was irrigated and the irrigation removed and that was repeated until the return was clear. The staple lines were inspected and there was no bleeding. Any irrigation that entered the right upper quadrant and pelvis was removed. The staple lines were again inspected and there was no bleeding. The gas was allowed to escape and introducers were removed. The fascia of the umbilical and left lower quadrant introducer sites was closed with interrupted 0 Vicryl and skin of all the incisions was closed with 4-0 Monocryl in either an interrupted or running subcuticular fashion. The skin was cleansed, dried, benzoin placed, Steri-Strips applied. Estimated blood loss was 5 mL. Sponge, needle and instrument counts were correct prior to closure. The patient tolerated the surgical procedure without complication and was transferred to recovery. I attest to the content of the Intraoperative Record and any orders documented therein. Any exceptions are noted below. MTDD
--- NOTE | 2020-04-19 13:44 | Surgery Progress Note ---
Date of Service April 19, 2020 Assessment & Plan (1) Acute appendicitis: Postoperative day 0 status post laparoscopic appendectomy She is doing well Can discharge to home She has a lot of support at home including family member who is a nurse Discussed with her her activity restrictions She can follow-up in 2 weeks Subjective Postoperative day 0 status post laparoscopic appendectomy Feeling quite well Tolerated regular diet Denies nausea and vomiting Having minimal pain and has not required narcotic analgesics Physical Exam Gastrointestinal (Abdomen): Inspection/Auscultation: normal bowel sounds; abdomen not distended Percussion/Palpation: + abdomen tender (Incisional only, mild) and abdomen soft Results & Data Vital Signs (Past 12 Hours) Vital Signs Temp Pulse Pulse Resp BP BP Pulse Ox 04/19/20 10:29 97 H 18 122/73 91 04/19/20 09:38 106 H 18 137/76 93 04/19/20 08:21 94 H 18 135/77 91 04/19/20 07:50 37 C 100 H 16 154/88 H 93 04/19/20 07:20 38.4 C H 99 H 16 143/81 H 95 04/19/20 07:11 102 H 18 145/77 H 93 04/19/20 07:00 105 H 18 141/84 H 94 04/19/20 06:47 37.4 C 98 H 18 150/73 H 94 04/19/20 06:45 99 H 18 150/73 H 94 04/19/20 06:30 96 H 18 144/75 H 94 04/19/20 06:11 37.7 C H 99 H 18 138/80 95 04/19/20 06:00 99 H 16 140/79 93 04/19/20 05:50 100 H 16 144/80 H 96 04/19/20 05:37 37.4 C 101 H 16 148/83 H 95 04/19/20 03:05 90 18 143/88 H 94 (1) Acute appendicitis Acute appendicitis type: with localized peritonitis Appendicitis abscess presence: without abscess Appendicitis gangrene presence: without gangrene Appendicitis perforation presence: without perforation Qualified Code(s): K35.30 - Acute appendicitis with localized peritonitis, without perforation or gangrene
--- NOTE | 2020-04-19 13:51 | Discharge Summary ---
Date of Service April 19, 2020 Admission HPI Per Admitting Provider This is a 74-year-old female who presented to the emergency room with a complaint of right lower quadrant pain that began about 12 to 16 hours ago. It began in the right lower quadrant and has remained there. It is sharp especially when she moves. It has not been associated with nausea or vomiting. Her temperature elevated to almost 102 at home. She has not had dysuria or hematuria. She has no melena or hematochezia. She had a normal bowel movement yesterday morning. There is no diarrhea. Admission Exam Per Admitting Provider Constitutional: no acute distress Neck: trachea midline, no thyromegaly Respiratory: normal respiratory effort, lungs clear to auscultation Cardiovascular: Rate/Rhythm: regular rate and regular rhythm Gastrointestinal (Abdomen): Inspection/Auscultation: abdomen not distended Percussion/Palpation: + abdomen tender (Right lower quadrant ) and abdomen soft; no abdominal mass Skin: no rashes, warm and dry Lymphatic: no cervical lymphadenopathy Principal Diagnosis Appendicitis Discharge Exam Constitutional no acute distress Gastrointestinal (Abdomen) Inspection/Auscultation: + abdominal surgical incision (Clean, dry and intact); abdomen not distended Percussion/Palpation: + abdomen tender (Mild incisional only) and abdomen soft Discharge Data Allergies Allergy/AdvReac Type Severity Reaction Status Date / Time No Known Allergies Allergy NKA Verified 04/19/20 01:22 Consultations 04/19/20 02:34 ED Decision to Admit Stat Procedures Performed Operation Date: 04/19/20 03:30 Actual Procedures p Laparoscopic Appendectomy(Not Applicable) - Osvaldo Acosta MD Ordered Studies 04/19/20 01:01 CT abd pelvis IV con only Urgent Hospital Course (1) Acute appendicitis: The patient was taken immediately to the operating room and underwent an uncomplicated laparoscopic cholecystectomy. There was adhesion of the appendix but there is no evidence of abscess or perforation. Postoperatively she tolerated a regular diet. She is moving her bowels. She ambulated well. She has very little pain. Total Time Total Time Spent Total Time Spent (In Minutes): 10 Discharge Plan Discharge Items Patient Disposition: Home - Self-Care Reason For Visit: APPENDICITIS Discharge Diagnosis: Appendicitis Activity: As commented below Non-emergency contact: Surgeon Call non-emergency contact if: your temperature is above 101.5, your wound has increased redness and your wound has increased drainage Follow-up/Referrals: Kirk Bo DO [Primary Care Provider] - Diet: Regular Addtl Attending Provider Instructions: Post-Surgical ~Discharge Instructions Activity Recommendations: - lifting limitation: (10 pounds for 2 weeks), - exercise/sex/sports limit: (nonstrenuous for 2 weeks), - driving or machine use limit: (none for 1 week), - Shower/bathe limit: (may shower beginning tomorrow) Diet: - Resume previous diet SPECIAL CARE INSTRUCTIONS: - May shower in 24 hours. Let water run over area and pat dry. - Leave steri strips on for one week. - Call the surgeon's office with any questions or concerns - - (ex. temperature higher than 101 degrees F, excessive bleeding or pain). MEDICATIONS: - Resume previous medications unless instructed otherwise by your surgeon. - Tylenol 650 mg every 6 hours as needed for pain - Ibuprofen 600 mg every 6 hours with food as needed for pain FOLLOW UP VISIT: - If not already scheduled, please call the office to schedule a two week follow-up appointment. Office number Pending Studies at Discharge: Yes Studies:: Pathology Stand-Alone Forms: My [facility] [employer], Smoking Cessation Medications and DC Order Prescriptions: Continued clobetasol 0.05 % shampoo 1 appln TOP DAILY Qty: 118 RF: 2 lisinopril-hydrochlorothiazide 20-25 mg tablet 1 tab PO DAILY RF: 0 vitamin E (dl, acetate) 400 unit capsule 400 units PO DAILY RF: 0 ascorbate calcium (vitamin C) 500 mg tablet 500 mg PO DAILY RF: 0 loratadine [Claritin] 10 mg tablet 10 mg PO DAILY RF: 0 coenzyme Q10 [CoQ-10] 100 mg capsule 100 mg PO DAILY RF: 0 acetaminophen [Tylenol Arthritis Pain] 650 mg tablet extended release 650 mg PO TID PRN (Reason: Pain) RF: 0 cannabidiol (CBD) extract 0 drp PO DIRECTED PRN (Reason: NEEDED) RF: 0 famotidine [Pepcid AC] 20 mg tablet 20 mg PO BID RF: 0 cholecalciferol (vitamin D3) [Vitamin D3] 25 mcg (1,000 unit) Capsule 0 mcg PO DAILY RF: 0 Discharge Orders: Discharge Order (Routine); Ordered 04/19/20 Ordered By: Osvaldo Acosta Admission Data Admit Date/Time: 04/19/20 05:17 Attending Provider: Osvaldo Acosta Admit Provider: Osvaldo Acosta Primary Care Provider: Kirk Bo Other Providers: Osvaldo Acosta
--- NOTE | 2020-04-20 13:05 | Electrocardiogram Report ---
Test Reason : Blood Pressure : / mmHG Vent. Rate : 101 BPM Atrial Rate : 101 BPM P-R Int : 168 ms QRS Dur : 090 ms QT Int : 352 ms P-R-T Axes : 040 -35 026 degrees QTc Int : 456 ms Sinus tachycardia Possible Left atrial enlargement Left axis deviation Abnormal ECG When compared with ECG of 09-APR-2017 08:12, Vent. rate has increased BY 36 BPM Confirmed by Alli Alexander ([id number]) on 04/20/2020 1:05:34 PM Referred By: REFERRED SELF Confirmed By:Alli Alexander
== END 2020-04-19 15:04 | disposition home or self-care (01) ==
LOC: ED 00:42 → 3W 03:05 → OR 03:05